=== PATIENT | male | born 1960 | race American Indian/Alaskan Native ===

== ENCOUNTER 2018-04-23 09:43 | Emergency (ER) | payer MEDICARE ==
[2018-04-23 10:18] VITALS: BP 164/92
[2018-04-23] MEDS ORDERED: TORADOL ONE (11:03)
[2018-04-23] MEDS ORDERED: TORADOL IM ONE (11:10)
--- NOTE | 2018-04-23 11:10 | Emergency Department Report ---
ED Back Pain/Injury HPI - General Chief Complaint: Back Pain/Injury Stated Complaint: BACK AND HEAD PAIN Time Seen by Provider: 04/23/18 10:30 Source: patient Limitations: No Limitations - History of Present Illness Initial Comments: Patient is a 58-year-old male who has past medical history of chronic back pain who states that he bent over to tie his shoes 2 days ago started having some increased pain in his lower back. Patient denies any radiation. Patient states is 10 out of 10 in severity. Patient is in pain management takes Percocet daily. Patient is here asking for Demerol shot. Patient denies any bowel or bladder dysfunction at this time. Patient also is afebrile. - Related Data Home Medications Medication Instructions Recorded Confirmed Last Taken Amitriptyline [Elavil] 10 mg PO TID PRN 05/23/14 09/23/15 3 Days Ago ~09/20/15 amLODIPine [Norvasc] 5 mg PO DAILY 05/23/14 09/23/15 09/23/15 Tizanidine HCl [Zanaflex] 4 mg PO TID PRN 09/23/15 09/23/15 Unknown Previous Rx's Medication Instructions Recorded Last Taken Type oxyCODONE /ACETAMINOPHEN [Percocet 1 tab PO 2XW PRN #12 tablet 02/10/15 Unknown Rx 5/325 mg] Oxycodone HCl/Acetaminophen 1 each PO Q6HR PRN #10 tablet 09/24/15 Unknown Rx [Percocet 7.5/325 mg] traMADol [Ultram 50 MG tab] 50 mg PO Q6HR PRN #14 tablet 01/10/16 Unknown Rx Allergies Allergy/AdvReac Type Severity Reaction Status Date / Time lidocaine Allergy Hives Verified 05/15/15 20:38 ED Review of Systems ROS: Stated complaint: BACK AND HEAD PAIN Other details as noted in HPI Comment: All other systems reviewed and negative ED Past Medical Hx - Past Medical History head injury in 2010, Back surgery Family history: no significant family history ED Back Pain Physical Exam - Exam General: Vital signs noted. No distress. Alert and acting appropriately. Back/Abdomen: No Abdominal Tenderness, No Perithoracic Tenderness, No Perilumbar Tenderness (patient did not seem to have any discomfort and palpation of his lower back. Patient had no midline tenderness.), No Sacroiliac Tenderness, No Flank Tenderness, No Straight Leg Raise Pain Neuro: Yes Normal Sensation, Yes Normal DTR's, Yes Normal Gait, No Motor Weakness ED Course Vital Signs 04/23/18 10:13 Temperature 97.9 F Pulse Rate 86 Respiratory 18 Rate Blood Pressure 164/92 O2 Sat by Pulse 98 Oximetry ED Medical Decision Making - Medical Decision Making Patient here asking for a shot of Demerol. I instructed the patient that we were unable to do any narcotics for his chronic condition patient was given a Toradol shot be discharged home. Critical care attestation.: If time is entered above; I have spent that time in minutes in the direct care of this critically ill patient, excluding procedure time. ED Disposition Clinical Impression: Chronic back pain Qualifiers: Back pain location: low back pain Back pain laterality: unspecified Sciatica presence: unspecified whether sciatica present Qualified Code(s): M54.5 - Low back pain; G89.29 - Other chronic pain Disposition: DC-01 TO HOME OR SELFCARE Is pt being admited?: No Does the pt Need Aspirin: No Condition: Stable Instructions: Chronic Back Pain (ED) Additional Instructions: The emergency department no longer can give or prescribe narcotics for chronic pain conditions. Please follow-up with your pain clinic for further care. Referrals: PRIMARY CARE [Primary Care Provider] - 3-5 Days
== END 2018-04-23 11:29 | disposition home or self-care (01) ==
LOC: ED 09:43
DX: M54.5 Low back pain (principal); G89.29 Other chronic pain; Z88.8 Allergy status to other drugs, medicaments and biological substances
CPT/HCPCS: 96372; 99282; J1885